=== PATIENT | male | born 2005 | race Caucasian/White ===

== ENCOUNTER 2024-07-25 09:22 | Emergency (ER) | payer SELFPAY ==
[~2024-07-25] VITALS: Ht 180.3 cm; Wt 55.0 kg
[2024-07-25 09:26] VITALS: O2SAT 99
[2024-07-25 09:27] VITALS: BP 145/85; PULSE 91; RESP 14; TEMP 36.7; O2SAT 100
[2024-07-25 10:49] LABS: *AMPHETAMINES SCREEN URINE NEGATIVE (NEGATIVE); *BARBITURATES SCREEN URINE NEGATIVE (NEGATIVE); *BENZODIAZEPINES SCREEN URINE NEGATIVE (NEGATIVE); *COCAINE SCREEN URINE NEGATIVE (NEGATIVE); CANNABINOID URINE SCREEN NEGATIVE (NEGATIVE); ECSTASY MDMA SCREEN URINE NEGATIVE (NEGATIVE); METHADONE URINE SCREEN NEGATIVE (NEGATIVE); OPIATES URINE SCREEN NEGATIVE (NEGATIVE); PHENCYCLIDINE URINE SCREEN NEGATIVE (NEGATIVE)
== END 2024-07-25 11:19 | disposition home or self-care (01) ==
LOC: ER 09:32
DX: Z02.89 Encounter for other administrative examinations (principal); Z79.899 Other long term (current) drug therapy
CPT/HCPCS: 80305; 99283

== ENCOUNTER 2024-08-20 08:24 | Emergency (ER) | payer MEDICAID ==
[~2024-08-20] VITALS: Ht 180.3 cm; Wt 64.0 kg
[2024-08-20 08:26] VITALS: O2SAT 100
[2024-08-20 08:28] VITALS: BP 125/80; PULSE 61; RESP 20; TEMP 36.6; O2SAT 100
[2024-08-20 09:03] LABS: *AMPHETAMINES SCREEN URINE NEGATIVE (NEGATIVE); *BARBITURATES SCREEN URINE NEGATIVE (NEGATIVE); *BENZODIAZEPINES SCREEN URINE NEGATIVE (NEGATIVE); *COCAINE SCREEN URINE NEGATIVE (NEGATIVE); METHADONE URINE SCREEN NEGATIVE (NEGATIVE)
[2024-08-20 09:04] LABS: CANNABINOID URINE SCREEN NEGATIVE (NEGATIVE); ECSTASY MDMA SCREEN URINE NEGATIVE (NEGATIVE); OPIATES URINE SCREEN NEGATIVE (NEGATIVE); PHENCYCLIDINE URINE SCREEN NEGATIVE (NEGATIVE)
== END 2024-08-20 10:34 | disposition home or self-care (01) ==
LOC: ER 08:24
DX: Z00.00 Encounter for general adult medical examination without abnormal findings (principal); Z79.899 Other long term (current) drug therapy
CPT/HCPCS: 80305; 99283

== ENCOUNTER 2024-09-01 09:04 | Emergency (ER) | payer MEDICAID ==
[~2024-09-01] VITALS: Ht 172.7 cm; Wt 55.0 kg
[2024-09-01 09:15] VITALS: O2SAT 100
[2024-09-01 10:57] LABS: *AMPHETAMINES SCREEN URINE NEGATIVE (NEGATIVE); *BARBITURATES SCREEN URINE NEGATIVE (NEGATIVE); *BENZODIAZEPINES SCREEN URINE NEGATIVE (NEGATIVE); *COCAINE SCREEN URINE NEGATIVE (NEGATIVE)
[2024-09-01 10:58] LABS: CANNABINOID URINE SCREEN NEGATIVE (NEGATIVE); ECSTASY MDMA SCREEN URINE NEGATIVE (NEGATIVE); METHADONE URINE SCREEN NEGATIVE (NEGATIVE); OPIATES URINE SCREEN NEGATIVE (NEGATIVE); PHENCYCLIDINE URINE SCREEN NEGATIVE (NEGATIVE)
[2024-09-01 11:38] VITALS: BP 120/75; PULSE 64; RESP 14; TEMP 37.2; O2SAT 100
== END 2024-09-01 11:38 | disposition home or self-care (01) ==
LOC: ER 09:04
DX: Z02.89 Encounter for other administrative examinations (principal); Z79.899 Other long term (current) drug therapy
CPT/HCPCS: 80305; 99283